=== PATIENT | male | born 1965 | race Caucasian/White ===

== ENCOUNTER 2020-10-31 13:29 | Inpatient (IN) | payer BC ==
[2020-10-31 15:17] LABS: ALT (SGPT) 8 U/L (8-55); AST (SGOT) 15 U/L (5-34); Albumin 4.1 g/dL (3.5-5.0); Alkaline Phosphatase 75 U/L (40-110); Anion Gap 13 mmol/L (10-20); BUN (Urea Nitrogen) 37 mg/dL (8.4-25.7); Bilirubin, Total 1.1 mg/dL (0.2-1.2); Calc. Creatinine Clearance 0 mL/min (70-130); Calcium 8.7 mg/dL (7.8-10.44); Carbon Dioxide 26 mmol/L (22-29); Chloride 99 mmol/L (98-107); Globulin 2.6 g/dL (2.4-3.5); Glucose 252 mg/dL (70-105); Lipase 34 U/L (8-78); Potassium 4.2 mmol/L (3.5-5.1); Protein, Total 6.7 g/dL (6.0-8.3); Sodium 134 mmol/L (136-145)
[2020-10-31 15:31] LABS: Hemoglobin 13.3 g/dL (13.5-17.5); Mean Corpuscular HGB CONC 33.4 g/dL (32.0-36.0); Mean Corpuscular Hemoglobin 26.7 pg (27.0-33.0); Mean Corpuscular Volume 79.8 fl (81.2-95.1); Mean Platelet Volume 12.4 fl (7.4-10.4); Platelet Count 66 10x3/uL (150-450); RBC Distribution Width 12.5 % (11.5-14.5); Red Blood Cell (RBC) Count 4.99 10x6/uL (4.32-5.72); White Blood Cell (WBC) Count 20.6 10x3/uL (3.5-10.5)
[2020-10-31 15:40] LABS: #Basophils 0.1 10x3/uL (0.0-0.2); #Eosinphils 0.1 10x3/uL (0.0-0.5); #Monocytes 1.1 10x3/uL (0.0-1.1); #Neutrophils 17.5 10x3/uL (1.5-8.4); %Basophils 0.4 % (0.0-2.0); %Eosinophils 0.5 % (0.0-6.0); %Lymphocytes 8.4 % (18.0-47.0); %Monocytes 5.4 % (0.0-10.0); %Neutrophils 84.9 % (40.0-75.0)
[2020-10-31 15:43] LABS: Platelet Morphology Comment Appears Decreased
[2020-10-31] MEDS ORDERED: Ondansetron PF 4 MG/2 ML Vial ONE ×2 (16:46→22:19)
[2020-10-31] MEDS ORDERED: Piperacillin/Tazobactam 4.5 GM VIAL ONE (17:14)
[2020-10-31] MEDS ORDERED: Acetaminophen 325 MG TAB PO PRN (19:19)
[2020-10-31] MEDS ORDERED: HYDROcodone/Acetaminophen 5/325 mg Tablet PO PRN (19:19)
[2020-10-31] MEDS ORDERED: Bisacodyl 5 MG TAB PO PRN (19:19)
[2020-10-31] MEDS ORDERED: Ondansetron PF 4 MG/2 ML Vial IVP PRN (19:19)
[2020-10-31] MEDS ORDERED: Guaifenesin DM 100-10/5 ML UDCUP PO PRN (19:19)
[2020-10-31] MEDS ORDERED: Dextrose 5% in Water 1,000 ML IV PRN (19:19)
[2020-10-31] MEDS ORDERED: Dextrose 50% Abboject 50 ML SYRINGE SLOW IVP PRN (19:19)
[2020-10-31] MEDS ORDERED: Calcium Carbonate 500 MG ChewTAB PO PRN (19:19)
[2020-10-31] MEDS ORDERED: Zolpidem Tartrate 5 MG TAB PO PRN (19:19)
[2020-10-31 23:34] VITALS: BMI 27.8
[2020-10-31] MEDS: Sodium Chloride 0.9% 1,000 ML IV SCH (23:53)
[2020-10-31] MEDS: Cyclobenzaprine 10 MG TAB PO SCH (23:54)
[2020-10-31] MEDS: Famotidine 20 MG TAB PO SCH (23:54)
[2020-10-31] MEDS: HYDROcodone/Acetaminophen 5/325 mg Tablet PO PRN (23:55)
[2020-10-31] MEDS: Senokot S 8.6-50 MG TAB PO SCH (23:57)
[2020-11-01] MEDS: HumaLOG 300 UNITS/3 ML VIAL SC PRN ×4 (00:19→21:42)
[2020-11-01] MEDS: metroNIDAZOLE 500 MG in Premix Bag 1 BAG IVPB SCH ×3 (02:31→19:12)
[2020-11-01] MEDS: Sodium Chloride 0.9% 1,000 ML IV SCH ×2 (06:00→11:39)
[2020-11-01 06:22] LABS: #Basophils 0.1 10x3/uL (0.0-0.2); #Eosinphils 0.1 10x3/uL (0.0-0.5); #Monocytes 0.6 10x3/uL (0.0-1.1); #Neutrophils 7.2 10x3/uL (1.5-8.4); %Basophils 0.7 % (0.0-2.0); %Eosinophils 1.1 % (0.0-6.0); %Lymphocytes 19.5 % (18.0-47.0); %Neutrophils 72.4 % (40.0-75.0); Hemoglobin 12.4 g/dL (13.5-17.5); Mean Corpuscular HGB CONC 33.2 g/dL (32.0-36.0); Mean Corpuscular Hemoglobin 26.7 pg (27.0-33.0); Mean Corpuscular Volume 80.4 fl (81.2-95.1); Platelet Count 50 10x3/uL (150-450); RBC Distribution Width 12.5 % (11.5-14.5); Red Blood Cell (RBC) Count 4.64 10x6/uL (4.32-5.72); White Blood Cell (WBC) Count 9.9 10x3/uL (3.5-10.5)
[2020-11-01 06:25] LABS: Anion Gap 11 mmol/L (10-20); BUN (Urea Nitrogen) 25 mg/dL (8.4-25.7); Calc. Creatinine Clearance 126 mL/min (70-130); Carbon Dioxide 24 mmol/L (22-29); Chloride 104 mmol/L (98-107); Glucose 145 mg/dL (70-105); Potassium 3.7 mmol/L (3.5-5.1); Sodium 135 mmol/L (136-145)
[2020-11-01] MEDS: Cyclobenzaprine 10 MG TAB PO SCH ×2 (08:34→21:42)
[2020-11-01] MEDS: Famotidine 20 MG TAB PO SCH ×2 (08:34→21:42)
[2020-11-01] MEDS: Senokot S 8.6-50 MG TAB PO SCH ×2 (08:34→21:42)
[2020-11-01] MEDS ORDERED: FLU VACC QS2020-21(6MOS UP)/PF 60 MCG/0.5 ML SYRINGE IM ONE (09:00)
[2020-11-01] MEDS: HYDROcodone/Acetaminophen 5/325 mg Tablet PO PRN ×2 (09:01→17:31)
[2020-11-01 09:32] LABS: Bilirubin Neg (Negative); Blood, Urine Negative (Negative); Clarity Clear (Clear); Glucose, Urine (Dipstick) 250 mg/dL (Negative); Ketone, Urine 50 mg/dL (Negative); Leukocyte 25 (Negative); Nitrite Negative (Negative); Protein, Urine (Dipstick) Negative (Neg-Trace); Urobilinogen Normal mg/dL (Less than 2); pH, Urine 6.5 (5.0-9.0)
[2020-11-01 09:40] LABS: Bacteria/HPF Rare-Few HPF (None Seen); RBC/HPF 0-3 HPF (0-3); Sperm/HPF Rare HPF (None Seen); Squamous Epithelial 0-3 HPF (0-3)
[2020-11-01 17:11] LABS: SARS-CoV-2 PCR by NAA Not Detected (NotDetected)
[2020-11-01] MEDS ORDERED: Lantus 1000 UNITS/10 ML VIAL SC SCH (21:00)
[2020-11-02] MEDS: Sodium Chloride 0.9% 1,000 ML IV SCH ×2 (00:06→05:11)
[2020-11-02] MEDS: metroNIDAZOLE 500 MG in Premix Bag 1 BAG IVPB SCH ×2 (00:06→09:47)
[2020-11-02] MEDS: HYDROcodone/Acetaminophen 5/325 mg Tablet PO PRN (00:07)
[2020-11-02] MEDS: HumaLOG 300 UNITS/3 ML VIAL SC PRN (05:19)
[2020-11-02] MEDS ORDERED: Levothyroxine Sodium 25 MCG TAB PO SCH (06:00)
[2020-11-02 08:57] LABS: Hemoglobin A1c 13.6 % (4.0-6.0)
[2020-11-02] MEDS: Cyclobenzaprine 10 MG TAB PO SCH (09:45)
[2020-11-02] MEDS: Famotidine 20 MG TAB PO SCH (09:46)
[2020-11-02] MEDS: Senokot S 8.6-50 MG TAB PO SCH (09:46)
[2020-11-02 10:03] VITALS: BP 137/90; TEMP 98.2
== END 2020-11-02 12:01 | disposition home or self-care (01) | DRG 392 ==
LOC: CSHERS 13:29 → CSHTELE 23:17
PROVIDERS: ADMIT Student in an Organized Health Care Education/Training Program; ATTEND Family Medicine
DX: K52.89 Other specified noninfective gastroenteritis and colitis (principal); N17.9 Acute kidney failure, unspecified; K59.00 Constipation, unspecified; R79.89 Other specified abnormal findings of blood chemistry; E11.65 Type 2 diabetes mellitus with hyperglycemia; Z79.4 Long term (current) use of insulin; Z91.81 History of falling; D69.6 Thrombocytopenia, unspecified; M54.5 Low back pain; Z20.822 Contact with and (suspected) exposure to COVID-19
CPT/HCPCS: 36415; 36416; 70450; 74177; 80048; 80053; 81001; 83036; 83605; 83630; 83690; 84443; 85025; 87040; 87045; 87046; 87081; 87149; 87324; 87427; 87449; 87635; 96365; 96375; 96376; J1815; J2405; J2543; J7050; U0003; U0005